=== PATIENT | male | born 1975 | race American Indian/Alaskan Native ===

== ENCOUNTER → 2016-07-15 | Outpatient (CLI) | payer OTHER ==
[~2016-07-15] MED LIST: AGM875T PO; AMIT25TA9 PO; CATHETER FLUSH 10 ML SYR IV PRN; CLON0.2T12 PO; DIPH25CA6 PO; DIVA250T4 PO; EZET1TAB31 PO; FLUO20TA28 PO; IBP800T PO; IOHEXOL 350 MG/ML 100 ML (OMNIPAQUE 350) VIAL IV ONE; LEVE500T6 PO; METH750T3 PO; NS 100 ML (IVPB) BAG IV ONE; ONDA4TAB11 PO; QUET200T PO; QUET50TA21 PO; QUET50TA49 PO; TRAZ-144 PO
--- NOTE | 2016-07-15 15:05 | Diagnostic Imaging Report ---
PROCEDURE: CT chest with contrast only. TECHNIQUE: Multiple contiguous axial images were obtained through the chest after administration of intravenous contrast. INDICATION: Follow-up cavitary lesion in the lung. 75 mL of Omnipaque-350 is administered intravenously. COMPARISON: 12/28/2014. FINDINGS: There is right upper lobe scarring. There are tree-in-bud opacities seen in a patchy distribution within the right middle lobe, the right lower lobe, and the left lower lobe likely secondary to a pulmonary infection possibly an atypical aneurysm. There is no cavitary lesion, mass or suspicious nodule seen at this time. No significantly enlarged mediastinal or hilar lymph node seen. The heart size is normal. The thoracic aorta is normal in caliber. No pericardial or pleural effusion seen. Sections in the upper abdomen appear grossly unremarkable. Mild degenerative changes are seen in the thoracic spine. IMPRESSION: Tree-in-bud opacities in the mid and lower lung zones bilaterally are likely secondary to an atypical infection. Dictated by: Dictated on workstation # [id number]
== END ==
LOC: RAD 14:22
PROVIDERS: ATTEND Internal Medicine Critical Care Medicine
DX: J98.4 Other disorders of lung (principal); J30.9 Allergic rhinitis, unspecified; B18.2 Chronic viral hepatitis C; E66.9 Obesity, unspecified; R06.02 Shortness of breath; G47.33 Obstructive sleep apnea (adult) (pediatric); Z72.0 Tobacco use
CPT/HCPCS: 71260; 87070; 87077; 87186; 87205

== ENCOUNTER → 2016-11-25 | Outpatient (CLI) | payer OTHER ==
[~2016-11-25] MED LIST changes: -CATHETER FLUSH 10 ML SYR IV PRN; -IOHEXOL 350 MG/ML 100 ML (OMNIPAQUE 350) VIAL IV ONE; -NS 100 ML (IVPB) BAG IV ONE
--- NOTE | 2016-11-25 14:27 | Diagnostic Imaging Report ---
PROCEDURE: CT chest without contrast. TECHNIQUE: Multiple contiguous axial images were obtained through the chest without the use of intravenous contrast. INDICATION: Acute bronchitis. Chest tightness. COMPARISON: CT chest of 07/15/2016. FINDINGS: Lungs and airway: No endoluminal lesion in the trachea or central bronchi. Previously noted centrilobular airspace nodules and opacities throughout both lungs have resolved. Focal linear atelectasis in the right upper lobe remains. No new pulmonary mass, nodule, or consolidation. Pleura: No pleural effusion or pneumothorax. Heart and mediastinum: Visualized thyroid is normal. No supraclavicular or axillary lymphadenopathy. No mediastinal, discrete hilar, or juxtaphrenic lymphadenopathy. Heart is normal in size without pericardial effusion. Normal caliber thoracic aorta. Upper abdomen: No acute or concerning abnormality in the upper abdomen by noncontrast imaging. Musculoskeletal: No concerning focal osseous lesion in the thorax. Multilevel Schmorl's modes are seen in the thoracic spine. IMPRESSION: 1. There has been complete resolution of the bronchiolitis seen on prior CT from 07/15/2016. No new pulmonary mass, nodule, or consolidation. 2. No intrathoracic lymphadenopathy. Dictated by: Dictated on workstation # [id number]
== END ==
LOC: RAD 09:19
PROVIDERS: ATTEND Internal Medicine Critical Care Medicine
DX: J20.9 Acute bronchitis, unspecified (principal); R91.8 Other nonspecific abnormal finding of lung field
CPT/HCPCS: 71250

== ENCOUNTER → 2016-12-15 | Outpatient (CLI) | payer OTHER ==
[2016-12-15 11:21] LABS: ALANINE AMINOTRANSFERASE 62 U/L (0-55); ALBUMIN 4.2 GM/DL (3.2-4.5); ANION GAP 8 MMOL/L (5-14); ASPARTATE AMINO TRANSFERASE 30 U/L (5-34); BILIRUBIN,TOTAL 0.3 MG/DL (0.1-1.0); BLOOD UREA NITROGEN 7 MG/DL (7-18); BUN/CREATININE RATIO 8; CALCIUM 9.7 MG/DL (8.5-10.1); CARBON DIOXIDE 27 MMOL/L (21-32); CHLORIDE 104 MMOL/L (98-107); GFR ESTIMATED > 60; GLUCOSE 114 MG/DL (70-105); MAGNESIUM 2.1 MG/DL (1.8-2.4); POTASSIUM 4.5 MMOL/L (3.6-5.0); SODIUM 139 MMOL/L (135-145); TOTAL PROTEIN 7.6 GM/DL (6.4-8.2)
[2016-12-15 11:43] LABS: THYROID STIMULATING HORMONE 1.83 UIU/ML (0.35-4.94)
== END ==
LOC: LAB 10:29
PROVIDERS: ATTEND Nurse Practitioner Family
DX: I50.32 Chronic diastolic (congestive) heart failure (principal); R06.02 Shortness of breath; G47.33 Obstructive sleep apnea (adult) (pediatric); Z72.0 Tobacco use
CPT/HCPCS: 36415; 80053; 83735; 84443

== ENCOUNTER → 2017-02-11 | Outpatient (CLI) | payer OTHER | LOC: CARD 11:15 | PROVIDERS: ATTEND Nurse Practitioner Family | DX: I50.32 Chronic diastolic (congestive) heart failure (principal); R06.02 Shortness of breath; G47.33 Obstructive sleep apnea (adult) (pediatric); Z72.0 Tobacco use | CPT/HCPCS: 93306 ==

== ENCOUNTER → 2017-03-16 | Outpatient (CLI) | payer OTHER ==
[2017-03-16 11:33] LABS: ANION GAP 11 MMOL/L (5-14); BLOOD UREA NITROGEN 12 MG/DL (7-18); BUN/CREATININE RATIO 11; CALCIUM 9.8 MG/DL (8.5-10.1); CARBON DIOXIDE 27 MMOL/L (21-32); CHLORIDE 99 MMOL/L (98-107); CREATININE SERUM 1.13 MG/DL (0.60-1.30); GFR ESTIMATED > 60; GLUCOSE 117 MG/DL (70-105); POTASSIUM 4.4 MMOL/L (3.6-5.0); SODIUM 137 MMOL/L (135-145)
== END ==
LOC: LAB 10:55
PROVIDERS: ATTEND Internal Medicine Cardiovascular Disease
DX: I50.32 Chronic diastolic (congestive) heart failure (principal); G47.33 Obstructive sleep apnea (adult) (pediatric)
CPT/HCPCS: 36415; 80048; 83735

== ENCOUNTER → 2017-11-19 | Outpatient (CLI) | payer OTHER ==
[2017-11-19 10:19] LABS: BASOPHILS % (AUTO) 0 % (0-10); EOSINOPHILS # (AUTO) 0.2 10^3/uL (0.0-0.3); EOSINOPHILS % (AUTO) 3 % (0-10); HEMATOCRIT 44 % (40-54); HEMOGLOBIN 15.1 G/DL (13.3-17.7); LYMPHOCYTES # (AUTO) 2.3 X 10^3 (1.0-4.0); LYMPHOCYTES % (AUTO) 31 % (12-44); MEAN CORPUSCULAR HEMOGLOBIN 30 PG (25-34); MEAN CORPUSCULAR HGB CONC 35 G/DL (32-36); MEAN CORPUSCULAR VOLUME 88 FL (80-99); MEAN PLATELET VOLUME 9.4 FL (7.4-10.4); MONOCYTES # (AUTO) 0.5 X 10^3 (0.0-1.0); MONOCYTES % (AUTO) 7 % (0-12); NEUTROPHILS # (AUTO) 4.3 X 10^3 (1.8-7.8); NEUTROPHILS % (AUTO) 59 % (42-75); PLATELET COUNT 318 10^3/uL (130-400); RED BLOOD COUNT 4.97 10^6/uL (4.35-5.85); RED CELL DISTRIBUTION WIDTH 13.8 % (10.0-14.5); WHITE BLOOD COUNT 7.3 10^3/uL (4.3-11.0)
[2017-11-19 10:38] LABS: ALANINE AMINOTRANSFERASE 14 U/L (0-55); ALBUMIN 4.1 GM/DL (3.2-4.5); ALKALINE PHOSPHATASE 79 U/L (40-136); BILIRUBIN,TOTAL 0.2 MG/DL (0.1-1.0); BUN/CREATININE RATIO 8; CALCIUM 9.3 MG/DL (8.5-10.1); CARBON DIOXIDE 29 MMOL/L (21-32); CHLORIDE 105 MMOL/L (98-107); CHOLESTEROL 230 MG/DL (< 200); GFR ESTIMATED > 60; GLUCOSE 116 MG/DL (70-105); HDL CHOLESTEROL 55 MG/DL (40-60); MAGNESIUM 2.4 MG/DL (1.8-2.4); POTASSIUM 4.2 MMOL/L (3.6-5.0); SODIUM 140 MMOL/L (135-145); TOTAL PROTEIN 7.1 GM/DL (6.4-8.2); TRIGLYCERIDES 280 MG/DL (<150); VLDL CHOLESTEROL 56 MG/DL (5-40)
[2017-11-19 11:09] LABS: ERYTHROCYTE SEDIMENTATION RATE 1 MM/HR (0-15)
== END ==
LOC: LAB 10:00
PROVIDERS: ATTEND Internal Medicine Cardiovascular Disease
DX: I50.32 Chronic diastolic (congestive) heart failure (principal); E66.8 Other obesity; Z72.0 Tobacco use; G73.3 Myasthenic syndromes in other diseases classified elsewhere; G47.19 Other hypersomnia; B18.2 Chronic viral hepatitis C
CPT/HCPCS: 36415; 80053; 80061; 83735; 84443; 85025; 85652

== ENCOUNTER → 2019-02-21 | Outpatient (CLI) | payer OTHER ==
[~2019-02-21] MED LIST changes: +RT-ALBUTEROL SULF 2.5 MG/3 ML PRE-MIX VIAL INH ONE
== END ==
LOC: RT 09:24
PROVIDERS: ATTEND Nurse Practitioner Family
DX: J30.9 Allergic rhinitis, unspecified (principal); G47.33 Obstructive sleep apnea (adult) (pediatric); Z72.0 Tobacco use
CPT/HCPCS: 94060; 94726; 94729

== ENCOUNTER → 2019-03-16 | Outpatient (CLI) | payer OTHER ==
[~2019-03-16] MED LIST changes: -RT-ALBUTEROL SULF 2.5 MG/3 ML PRE-MIX VIAL INH ONE
[2019-03-16 08:57] LABS: BASOPHILS % (AUTO) 0 % (0-10); EOSINOPHILS # (AUTO) 0.4 10^3/uL (0.0-0.3); EOSINOPHILS % (AUTO) 8 % (0-10); HEMATOCRIT 37 % (40-54); LYMPHOCYTES # (AUTO) 1.6 X 10^3 (1.0-4.0); LYMPHOCYTES % (AUTO) 34 % (12-44); MEAN CORPUSCULAR HEMOGLOBIN 28 PG (25-34); MEAN CORPUSCULAR HGB CONC 33 G/DL (32-36); MEAN CORPUSCULAR VOLUME 85 FL (80-99); MEAN PLATELET VOLUME 8.8 FL (7.4-10.4); MONOCYTES # (AUTO) 0.5 X 10^3 (0.0-1.0); MONOCYTES % (AUTO) 11 % (0-12); NEUTROPHILS # (AUTO) 2.2 X 10^3 (1.8-7.8); NEUTROPHILS % (AUTO) 48 % (42-75); PLATELET COUNT 366 10^3/uL (130-400); WHITE BLOOD COUNT 4.7 10^3/uL (4.3-11.0)
[2019-03-16 09:08] LABS: INR 0.9 (0.8-1.4); PROTHROMBIN TIME PATIENT 12.8 SEC (12.2-14.7)
[2019-03-16 09:16] LABS: ALKALINE PHOSPHATASE 76 U/L (40-136); BILIRUBIN,TOTAL 0.2 MG/DL (0.1-1.0); BUN/CREATININE RATIO 8; CALCIUM 8.7 MG/DL (8.5-10.1); CARBON DIOXIDE 24 MMOL/L (21-32); CHLORIDE 108 MMOL/L (98-107); CREATININE SERUM 0.78 MG/DL (0.60-1.30); GFR ESTIMATED > 60; GLUCOSE 87 MG/DL (70-105); MAGNESIUM 1.9 MG/DL (1.6-2.4); POTASSIUM 3.9 MMOL/L (3.6-5.0); SODIUM 139 MMOL/L (135-145)
[2019-03-16 09:17] LABS: ALANINE AMINOTRANSFERASE 19 U/L (0-55); ALBUMIN 3.8 GM/DL (3.2-4.5); CHOLESTEROL 172 MG/DL (< 200); HDL CHOLESTEROL 41 MG/DL (40-60); TOTAL PROTEIN 6.6 GM/DL (6.4-8.2); TRIGLYCERIDES 162 MG/DL (<150); VLDL CHOLESTEROL 32 MG/DL (5-40)
[2019-03-16 09:24] LABS: ERYTHROCYTE SEDIMENTATION RATE 14 MM/HR (0-15)
== END ==
LOC: LAB 08:27
PROVIDERS: ATTEND Internal Medicine Cardiovascular Disease
DX: J98.4 Other disorders of lung (principal); I11.0 Hypertensive heart disease with heart failure; B18.2 Chronic viral hepatitis C; I50.32 Chronic diastolic (congestive) heart failure; E66.9 Obesity, unspecified; G47.33 Obstructive sleep apnea (adult) (pediatric); Z72.0 Tobacco use
CPT/HCPCS: 36415; 80053; 80061; 83735; 83880; 84443; 85025; 85610; 85652

== ENCOUNTER → 2019-07-29 | Outpatient (CLI) | payer OTHER ==
[~2019-07-29] VITALS: Ht 170 cm; Wt 113.0 kg
[~2019-07-29] MED LIST changes: +CATHETER FLUSH 10 ML SYR IV PRN; +REGADENOSON 0.4 MG/5 ML SYR (LEXISCAN) IV ONE
[2019-07-29 08:49] VITALS: BP 162/101
[2019-07-29 09:03] VITALS: BP 171/91
--- NOTE | 2019-07-31 18:56 | STRESS TEST ---
DATE OF SERVICE: 07/29/2019 RESTING AND POST REGADENOSON TECHNETIUM-99M TETROFOSMIN SPECT CT IMAGING ORDERING PHYSICIAN: Dr. Mitchell. PRIMARY PHYSICIAN: Dr. Rodriguez. CLINICAL DIAGNOSES: Diastolic congestive heart failure, shortness of breath, hypertension. Baseline images were carried out after injection of 10.75 mCi of technetium-99m Tetrofosmin. This was followed by 0.4 mg regadenoson and 30.1 mCi of technetium-99m Tetrofosmin for stress imaging. The electrocardiogram showed sinus rhythm at baseline. It did not change significantly with regadenoson infusion. The patient noted some shortness of breath with regadenoson infusion, which resolved in a few minutes. Review of images at rest and following stress does not indicate any significant perfusion defects consistent with myocardial ischemia or infarction. Gated images show normal global left ventricular systolic function with normal regional wall motion. Left ventricular ejection fraction is calculated to be 77%. Left ventricular end diastolic volume is 61 mL. TID is absent (0.92). CONCLUSIONS: 1. No evidence of any significant myocardial ischemia or infarction on this study. 2. Normal regional wall motion. 3. Normal global left ventricular systolic function with a calculated ejection fraction of 77%. Job ID: [id number] DocumentID: [id number] Dictated Date: 07/31/2019 17:07:52 Assistant Controller Date: 07/31/2019 18:55:23 Dictated By: AILYN MITCHELL MD, MA, FACP, FACC,
== END ==
LOC: CARD 06:42
PROVIDERS: ATTEND Internal Medicine Cardiovascular Disease
DX: I11.0 Hypertensive heart disease with heart failure (principal); I50.32 Chronic diastolic (congestive) heart failure; E66.9 Obesity, unspecified; G47.33 Obstructive sleep apnea (adult) (pediatric); Z72.0 Tobacco use; Z91.14 Patient's other noncompliance with medication regimen
CPT/HCPCS: 78452; 93017

== ENCOUNTER 2020-08-20 11:12 | Emergency (ER) | payer SELFPAY ==
[~2020-08-20] VITALS: Ht 172.7 cm; Wt 117.9 kg
[~2020-08-20 11:12] MED LIST changes: -CATHETER FLUSH 10 ML SYR IV PRN; -REGADENOSON 0.4 MG/5 ML SYR (LEXISCAN) IV ONE
--- NOTE | 2020-08-20 11:53 | ED General ---
General Chief Complaint: General Problems/Pain Stated Complaint: SLURRED SPEECH, R LEG SIS, SCROTUM/BACK PAIN Nursing Triage Note: PT AMB TO [facility] WITH COMPLAINT OF BACK SPASMS, DIFF WALKING, DIFF SPEECH AND WEAKNESS. STATES HAS BEEN ON GOING FOR TWO WEEKS. HAS HISTORY OF DEGENERATIVE DISC DISEASE. LAST SMOKED METH 4-5 DAYS AGO. Nursing Sepsis Screen: No Definite Risk Source of Information: Patient Exam Limitations: No Limitations History of Present Illness Date Seen by Provider: Aug 20, 2020 Time Seen by Provider: 11:40 Initial Comments Patient is a 45-year-old male who presents to the emergency department today with multiple complaints. Patient is complaining of primarily speech slurring/difficulty ongoing for the last 2 weeks. He is also complaining of back pain and right leg weakness. He states this has been going on for months. He is also complaining of testicular pain that has been ongoing for several months up to a year. No change in the back pain and testicular pain. 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 The last use was about 4 days ago. Patient states that his finally was able to get him to agree to come to the hospital and his mother was available to give him a ride so that is why he came today. He endorses occasional headaches. No significant visual changes. He complains of weakness to his right leg and subjectively to his arms. Patient denies any problems with bowel or bladder but he is having occasional diarrhea. No incontinence. All other ROS reviewed and negative except as stated. Timing/Duration: Constant Severity: Moderate Allergies and Home Medications Allergies Coded Allergies: fentanyl (Verified Allergy, Severe, 07/29/19) REQUIRED NARCAN Penicillins (Verified Allergy, Intermediate, 07/29/19) SEVERE DROP IN BP REPORTED naproxen (Unverified Adverse Reaction, Unknown, 10/31/14) COUNTER-REACTION WITH SEIZURE MEDS Home Medications Amitriptyline Hcl 25 Mg Tablet, 12.5 MG PO Q4H PRN for DEPRESSION, (Reported) takes 1/2 tablet Amoxicillin/Clavulanate K 875 Mg Tab, 875 MG PO BID Prescribed by: JOSÉ MIGUEL VIDAL on 11/02/14 1712 Clonidine HCl 0.2 Mg Tablet, 0.2 MG PO DAILY, (Reported) Diphenhydramine Hcl 25 Mg Capsule, 25 MG PO Q6H PRN for SINUS DRAINAGE, (Reported) Divalproex Sodium 250 Mg Tablet.dr, 750 MG PO BID, (Reported) take 3 (250 mg) tablets Ezetimibe/Simvastatin 1 Tab Tablet, 0.5 TAB PO HS, (Reported) take 1/2 tablet Fluoxetine Hcl 20 Mg Tablet, 20 MG PO DAILY, (Reported) Levetiracetam 500 Mg Tablet, 1,000 MG PO BID, (Reported) take 2 (500 mg) tablets Methocarbamol 750 Mg Tablet, 1,500 MG PO BID, (Reported) TAKE 2 (750 mg) tablets Ondansetron 4 Mg Tab.rapdis, 4 MG PO Q8H PRN for NAUSEA, (Reported) Quetiapine Fumarate 200 Mg Tablet, 200 MG PO HS, (Reported) Quetiapine Fumarate 50 Mg Tab.sr.24h, 50 MG PO BID, (Reported) Trazodone Hcl 50 Mg Tablet, 50 MG PO HS, (Reported) Patient Home Medication List Home Medication List Reviewed: Yes Review of Systems Review of Systems Constitutional: see HPI EENTM: no symptoms reported Respiratory: no symptoms reported Cardiovascular: no symptoms reported Gastrointestinal: no symptoms reported Genitourinary: pain Musculoskeletal: back pain (Testicular pain) Skin: no symptoms reported Psychiatric/Neurological: Anxiety, Other (Slurred speech/trouble finding words) All Other Systems Reviewed Negative Unless Noted: Yes Past Fvxbxyi-Jxtgca-Emypgc Hx Patient Social History Alcohol Use: Denies Use Drug of Choice: METH Smoking Status: Current Everyday Smoker Type Used: Cigarettes Recent Infectious Disease Expo: No Immunizations Up To Date Tetanus Booster (TDap): Unknown Past Medical History Surgeries: Yes (RT INDEX FINGER (TUMOR REMOVED), LT SHOULDER (TORN LABRIUM)) Respiratory: Yes (PATIENT THINKS HE HAS SLEEP APNEA ) Sleep Apnea, COPD Cardiac: Yes Hypertension Neurological: Yes Reproductive Disorders: No HIV/AIDS: No Gastrointestinal: Yes (HEPATITIS C, HERNIA ) Gastroesophageal Reflux, Hepatitis Musculoskeletal: Yes Degenerate Disk Disease, Arthritis Endocrine: No HEENT: No Tinnitis Cancer: No Psychosocial: Yes Anxiety, Bipolar, Depression Integumentary: Yes (CELLULITIS ) Blood Disorders: No Adverse Reaction/Blood Tranf: No Family Medical History Cardiovascular disease UNCLE GRANDFATHER Diabetes mellitus MATERNAL GRANDMOTHER FH: cirrhosis MATERNAL AUNT MATERNAL GRANDMOTHER FH: lung disease 19 FATHER Physical Exam Vital Signs Vital Signs - First Documented 08/20/20 11:35 Temp 36.1 Pulse 99 Resp 20 B/P (MAP) 155/109 (124) Pulse Ox 96 O2 Delivery Room Air Capillary Refill : Less Than 3 Seconds Height, Weight, BMI Height: 5'7.00" Weight: 194lbs. 4.0oz. 88.119578us; 39.00 BMI Method: General Appearance: No Apparent Distress, WD/WN Eyes: Bilateral Eye Normal Inspection, Bilateral Eye PERRL, Bilateral Eye EOMI HEENT: PERRL/EOMI, Pharynx Normal Neck: Non Tender, Supple Respiratory: Lungs Clear, Normal Breath Sounds, No Accessory Muscle Use, No Respiratory Distress Cardiovascular: Regular Rate, Rhythm Gastrointestinal: Normal Bowel Sounds, Non Tender, Soft Genital/Rectal: Normal Genital Exam, Other (no testicular tenderness bilaterally; circumcised) Extremity: Normal Capillary Refill, Normal Inspection, Normal Range of Motion, Non Tender, No Calf Tenderness, No Pedal Edema Neurologic/Psychiatric: Alert, Oriented x3, No Motor/Sensory Deficits, Normal Mood/Affect, Abnormal soup mixer II-XII (Tongue is midline; palate elevates symmetrically;); No Depressed Affect, No Disoriented, No EOM Palsy, No Facial Droop; Motor Weakness (4+ strength right lower extremity at quads; dorsiflexion of the feet bilaterally is 5/5); No Sensory Deficit; Other (equivocal pronator drift left upper extremity; no clonus; DTR's difficult to obtain bilateral patellar; dysarthria and slight word finding difficulty) Skin: Normal Color, Warm/Dry Progress/Results/Core Measures Suspected Sepsis Recent Fever Within 48 Hours: No Infection Criteria Present: None New/Unexplained Altered Menta: No Sepsis Screen: No Definite Risk SIRS Temperature: Pulse: 99 Respiratory Rate: 20 Laboratory Tests 08/20/20 12:17: White Blood Count 11.8H Blood Pressure 155 /109 Mean: 124 Laboratory Tests 08/20/20 12:17: Creatinine 0.90, Platelet Count 288, Total Bilirubin 0.2 Results/Orders Lab Results Laboratory Tests Test 08/20/20 12:17 08/20/20 12:25 Range/Units White Blood Count 11.8 H 4.3-11.0 10^3/uL Red Blood Count 4.08 L 4.30-5.52 10^6/uL Hemoglobin 11.9 L 13.3-17.7 g/dL Hematocrit 37 L 40-54 % Mean Corpuscular Volume 90 80-99 fL Mean Corpuscular Hemoglobin 29 25-34 pg Mean Corpuscular Hemoglobin Concent 33 32-36 g/dL Red Cell Distribution Width 13.7 10.0-14.5 % Platelet Count 288 130-400 10^3/uL Mean Platelet Volume 9.0 9.0-12.2 fL Immature Granulocyte % (Auto) 0 % Neutrophils (%) (Auto) 76 H 42-75 % Lymphocytes (%) (Auto) 12 12-44 % Monocytes (%) (Auto) 8 0-12 % Eosinophils (%) (Auto) 3 0-10 % Basophils (%) (Auto) 0 0-10 % Neutrophils # (Auto) 9.0 H 1.8-7.8 10^3/uL Lymphocytes # (Auto) 1.4 1.0-4.0 10^3/uL Monocytes # (Auto) 1.0 0.0-1.0 10^3/uL Eosinophils # (Auto) 0.4 H 0.0-0.3 10^3/uL Basophils # (Auto) 0.0 0.0-0.1 10^3/uL Immature Granulocyte # (Auto) 0.1 0.0-0.1 10^3/uL Sodium Level 139 135-145 MMOL/L Potassium Level 4.3 3.6-5.0 MMOL/L Chloride Level 103 98-107 MMOL/L Carbon Dioxide Level 29 21-32 MMOL/L Anion Gap 7 5-14 MMOL/L Blood Urea Nitrogen 9 7-18 MG/DL Creatinine 0.90 0.60-1.30 MG/DL Estimat Glomerular Filtration Rate > 60 BUN/Creatinine Ratio 10 Glucose Level 118 H 70-105 MG/DL Calcium Level 8.7 8.5-10.1 MG/DL Corrected Calcium 9.0 8.5-10.1 MG/DL Total Bilirubin 0.2 0.1-1.0 MG/DL Aspartate Amino Transf (AST/SGOT) 11 5-34 U/L Alanine Aminotransferase (ALT/SGPT) 12 0-55 U/L Alkaline Phosphatase 89 40-136 U/L Total Protein 6.9 6.4-8.2 GM/DL Albumin 3.6 3.2-4.5 GM/DL Valproic Acid (Depakene) Level 10.0 L 50.0-100.0 UG/ML Urine Opiates Screen NEGATIVE NEGATIVE Urine Oxycodone Screen NEGATIVE NEGATIVE Urine Methadone Screen NEGATIVE NEGATIVE Urine Propoxyphene Screen NEGATIVE NEGATIVE Urine Barbiturates Screen NEGATIVE NEGATIVE Ur Tricyclic Antidepressants Screen POSITIVE H NEGATIVE Urine Phencyclidine Screen NEGATIVE NEGATIVE Urine Amphetamines Screen NEGATIVE NEGATIVE Urine Methamphetamines Screen NEGATIVE NEGATIVE Urine Benzodiazepines Screen NEGATIVE NEGATIVE Urine Cocaine Screen NEGATIVE NEGATIVE Urine Cannabinoids Screen POSITIVE H NEGATIVE My Orders Orders - MARY MONTES MD Cbc With Automated Diff (08/20/20 12:04) Comprehensive Metabolic Panel (08/20/20 12:04) Drug Screen Stat (Urine) (08/20/20 12:04) Ct Head Wo (08/20/20 12:04) Valproic Acid (08/20/20 12:04) Ed Iv/Invasive Line Start (08/20/20 12:04) Vital Signs/I&O 08/20/20 11:35 Temp 36.1 Pulse 99 Resp 20 B/P (MAP) 155/109 (124) Pulse Ox 96 O2 Delivery Room Air Capillary Refill : Less Than 3 Seconds Blood Pressure Mean: 124 Progress Note : Time: 13:23 Progress Note Patient seen and evaluated, 45-year-old with multiple somatic complaints. Evaluation today includes a physical exam, CBC, Chem-12, urine drug screen, valproic acid level. CT scan of the brain was also obtained. Patient is slightly low on his valproic acid. CT scan of the brain is unremarkable. The rest of his laboratory results are reassuring. The patient did remember that he recently restarted taking trazodone 7 to 10 days ago, about the time that his speech difficulties began. Patient is counseled on his medication compliance and advised to really watch what meds he is taking. Patient also admits that he got his Seroquel confused a couple of times within the last month. Patient is advised to follow-up with his psychiatric provider as well as his neurologist. He verbalizes understanding. He is comfortable with discharge at this time. All questions have been sought and answered. Diagnostic Imaging Diagonstic Imaging: CT Plain Films/CT/US/NM/MRI: head Comments [facility] [place] NAME: PRADIP PERAZA JR [facility] REC#: [id number] PT STATUS: REG ER : 1975 PHYSICIAN: MARY MONTES MD ADMIT DATE: 08/20/20/ER Draft Date of Exam:08/20/20 CT HEAD WO EXAMINATION: CT head without contrast. TECHNIQUE: Multiple contiguous axial images were obtained through the brain without the use of intravenous contrast. All CT scans use one or more of the following dose optimizing techniques: automated exposure control, MA and/or KvP adjustment based on a patient size and exam type, or iterative reconstruction. HISTORY: Right leg weakness. Slurred speech. COMPARISON: None available. FINDINGS: No large acute territorial ischemia, mass, or hemorrhage. No midline shift or mass effect. The ventricles, cortical sulci, and basilar cisterns are patent and unremarkable. The orbits are normal. Paranasal sinuses are normal. Mastoid air cells are clear. No soft tissue abnormality is seen. No osseus lesions or fractures are seen. IMPRESSION: No large acute territorial ischemia, mass, or hemorrhage. Dictated on workstation # [id number] Dict: 08/20/20 1305 Trans: 08/20/20 1308 [id number] Interpreted by: JORGE EWING DO Electronically signed by: Departure Impression Primary Impression: Dysarthria Disposition: 01 HOME, SELF-CARE Condition: Stable Departure-Patient Inst. Decision time for Depature: 13:24 Referrals: MJ GUPTA MD (PCP/Family) Primary Care Physician Patient Instructions: Medication Safety, Adult Add. Discharge Instructions: Be certain to take your medications exactly as prescribed. Please call your neurologist and psychiatric provider to have your medications adjusted as necessary. If you have any worsening symptoms of slurring of speech, weakness, headache or any other emergent concerning symptoms please come back to the emergency department for reevaluation. MARY MONTES MD Aug 20, 2020 11:53
[2020-08-20 12:22] LABS: BASOPHILS % (AUTO) 0 % (0-10); EOSINOPHILS # (AUTO) 0.4 10^3/uL (0.0-0.3); EOSINOPHILS % (AUTO) 3 % (0-10); HEMATOCRIT 37 % (40-54); HEMOGLOBIN 11.9 g/dL (13.3-17.7); LYMPHOCYTES # (AUTO) 1.4 10^3/uL (1.0-4.0); LYMPHOCYTES % (AUTO) 12 % (12-44); MEAN CORPUSCULAR HEMOGLOBIN 29 pg (25-34); MEAN CORPUSCULAR HGB CONC 33 g/dL (32-36); MEAN CORPUSCULAR VOLUME 90 fL (80-99); MONOCYTES % (AUTO) 8 % (0-12); NEUTROPHILS % (AUTO) 76 % (42-75); PLATELET COUNT 288 10^3/uL (130-400); WHITE BLOOD COUNT 11.8 10^3/uL (4.3-11.0)
[2020-08-20 12:40] LABS: AMPHETAMINE SCREEN, URINE NEGATIVE (NEGATIVE); BARBITURATE SCREEN URINE NEGATIVE (NEGATIVE); BENZODIAZEPINES SCREEN URINE NEGATIVE (NEGATIVE); CANNABINOID SCREEN, URINE POSITIVE (NEGATIVE); COCAINE SCREEN URINE NEGATIVE (NEGATIVE); METHADONE STAT NEGATIVE (NEGATIVE); METHAMPHETAMINE SCREEN URINE S NEGATIVE (NEGATIVE); OPIATE SCREEN URINE NEGATIVE (NEGATIVE); OXYCODONE STAT NEGATIVE (NEGATIVE); PROPOXYPHENE STAT NEGATIVE (NEGATIVE); TRICYCLIC ANTIDEPRESSANTS SCRE POSITIVE (NEGATIVE)
[2020-08-20 12:48] LABS: ALANINE AMINOTRANSFERASE 12 U/L (0-55); ALBUMIN 3.6 GM/DL (3.2-4.5); ALKALINE PHOSPHATASE 89 U/L (40-136); BILIRUBIN,TOTAL 0.2 MG/DL (0.1-1.0); BUN/CREATININE RATIO 10; CALCIUM 8.7 MG/DL (8.5-10.1); CARBON DIOXIDE 29 MMOL/L (21-32); CHLORIDE 103 MMOL/L (98-107); GFR ESTIMATED > 60; GLUCOSE 118 MG/DL (70-105); POTASSIUM 4.3 MMOL/L (3.6-5.0); SODIUM 139 MMOL/L (135-145); TOTAL PROTEIN 6.9 GM/DL (6.4-8.2)
--- NOTE | 2020-08-20 13:09 | Diagnostic Imaging Report ---
EXAMINATION: CT head without contrast. TECHNIQUE: Multiple contiguous axial images were obtained through the brain without the use of intravenous contrast. All CT scans use one or more of the following dose optimizing techniques: automated exposure control, MA and/or KvP adjustment based on a patient size and exam type, or iterative reconstruction. HISTORY: Right leg weakness. Slurred speech. COMPARISON: None available. FINDINGS: No large acute territorial ischemia, mass, or hemorrhage. No midline shift or mass effect. The ventricles, cortical sulci, and basilar cisterns are patent and unremarkable. The orbits are normal. Paranasal sinuses are normal. Mastoid air cells are clear. No soft tissue abnormality is seen. No osseus lesions or fractures are seen. IMPRESSION: No large acute territorial ischemia, mass, or hemorrhage. Dictated by: Dictated on workstation # [id number]
[2020-08-20 13:44] VITALS: BP 137/82
== END 2020-08-20 13:44 | disposition home or self-care (01) ==
LOC: EDUNIT# 11:12 → ER 11:15
DX: R47.1 Dysarthria and anarthria (principal); I10 Essential (primary) hypertension; F41.9 Anxiety disorder, unspecified; F31.9 Bipolar disorder, unspecified; F17.210 Nicotine dependence, cigarettes, uncomplicated; Z88.0 Allergy status to penicillin; Z88.8 Allergy status to other drugs, medicaments and biological substances; Z82.49 Family history of ischemic heart disease and other diseases of the circulatory system; Z83.3 Family history of diabetes mellitus
CPT/HCPCS: 36415; 70450; 80053; 80164; 80306; 85025

== ENCOUNTER → 2021-03-12 | Outpatient (CLI) | payer OTHER ==
[~2021-03-12] MED LIST changes: +RT-ALBUTEROL SULF 2.5 MG/3 ML PRE-MIX VIAL INH ONE
== END ==
LOC: RT 13:00
PROVIDERS: ATTEND Nurse Practitioner Family
DX: J45.909 Unspecified asthma, uncomplicated (principal)
CPT/HCPCS: 94060; 94726; 94729

== ENCOUNTER → 2021-09-18 | Outpatient (CLI) | payer OTHER ==
[~2021-09-18] MED LIST changes: -RT-ALBUTEROL SULF 2.5 MG/3 ML PRE-MIX VIAL INH ONE
== END ==
LOC: CARD 13:00
PROVIDERS: ATTEND Internal Medicine Cardiovascular Disease
DX: R06.09 Other forms of dyspnea (principal)
CPT/HCPCS: 93306

== ENCOUNTER → 2022-09-16 | Outpatient (CLI) | payer OTHER | LOC: CARD 08:17 | PROVIDERS: ATTEND Internal Medicine Cardiovascular Disease | DX: R06.09 Other forms of dyspnea (principal) | CPT/HCPCS: 93306 ==

== ENCOUNTER → 2022-09-30 | Outpatient (CLI) | payer OTHER ==
[~2022-09-30] MED LIST changes: +CATHETER FLUSH 10 ML SYR IVP PRN; +REGADENOSON 0.4 MG/5 ML SYR (LEXISCAN) IV ONE
[2022-09-30 09:10] VITALS: BP 142/81
--- NOTE | 2022-09-30 17:37 | STRESS TEST ---
DATE OF SERVICE: 09/30/2022 RESTING AND POST REGADENOSON TECHNETIUM-99M TETROFOSMIN SPECT CT IMAGING ORDERING PHYSICIAN: Linette Suarez APRN. PRIMARY PHYSICIAN: Dr. Blanton. CLINICAL DIAGNOSIS: Shortness of breath. Baseline images were carried out after injection of 10.97 mCi of technetium-99m tetrofosmin. This was followed by 0.4 mg regadenoson and 32 mCi of technetium-99m tetrofosmin for stress imaging. The electrocardiogram showed sinus rhythm at baseline. It did not change significantly with the regadenoson infusion. Review of images at rest and following stress does not indicate any significant perfusion defects consistent with myocardial ischemia or infarction. Gated images show normal global left ventricular systolic function with normal regional wall motion. Left ventricular ejection fraction is calculated to be 72%. CONCLUSIONS: 1. No evidence of any significant myocardial ischemia or infarction. 2. Normal regional wall motion. 3. Normal global left ventricular systolic function with a calculated ejection fraction 72%. Job ID: [id number] DocumentID: [id number] Dictated Date: 09/30/2022 13:58:13 Safety Advisor Date: 09/30/2022 17:35:00 Dictated By: AILYN MOBLEY MD; MA; FACP; FACC;
== END ==
LOC: CARD 07:24
PROVIDERS: ATTEND Nurse Practitioner Family
DX: R06.09 Other forms of dyspnea (principal)
CPT/HCPCS: 78452; 93017